=== PATIENT | female | born 1980 | race African-American/Black ===

== ENCOUNTER 2018-07-22 17:18 | Emergency (ER) | payer SELFPAY ==
[~2018-07-22] VITALS: Ht 160 cm; Wt 72.6 kg
[2018-07-22 17:32] VITALS: BP 129/89
[2018-07-22] MEDS ORDERED: IBUPROFEN600 MG ORAL (17:40)
[2018-07-22] MEDS ORDERED: AMOXICILLIN500 MG ORAL (17:40)
[2018-07-22 17:44] VITALS: BP 129/89
--- NOTE | 2018-07-22 18:37 | Emergency Room Report ---
History of Present Illness General Chief Complaint: Sore Throat Source: Patient Present Illness HPI The patient is a 38-year-old female presenting for sore throat and left ear pain for the past 3 days. Symptoms have been worsening and is now described as an 8 out of 10 dull ache primarily at the back of the throat. Worse with swallowing. She denies any known sick contacts but does have an at home. She denies any fever, chills, cough, shortness of breath, rash Allergies: Coded Allergies: No Known Allergies (Unverified , 07/22/18) Patient History Past Medical History: see triage record Pertinent Family History: none Last Menstrual Period: 07/20/18 Now: Yes : 4 Para: 2 Reviewed Nursing Documentation: PMH: Agreed; PSxH: Agreed Nursing Documentation-PMH Past Medical History: No Stated History Review of Systems All Other Systems: negative except mentioned in HPI Physical Exam Vital Signs Date Time Temp Pulse Resp B/P (MAP) Pulse Ox O2 Delivery O2 Flow Rate FiO2 07/22/18 17:24 98.5 77 18 129/89 100 Room Air 98.4 Sp02 EP Interpretation: reviewed, normal General Appearance: no apparent distress, alert, GCS 15, non-toxic Head: normocephalic, atraumatic Eyes: bilateral eye normal inspection, bilateral eye PERRL ENT: hearing grossly normal, no angioedema, normal voice, TMs + canals normal, uvula midline, tonsillar swelling, pharyngeal erythema Neck: full range of motion, supple/symm/no masses Respiratory: chest non-tender, lungs clear, normal breath sounds, speaking full sentences Cardiovascular #1: regular rate, rhythm, no edema Musculoskeletal: back normal, gait/station normal, normal range of motion, non- tender Neurologic: alert, oriented x3, responsive, motor strength/tone normal, sensory intact, speech normal Psychiatric: judgement/insight normal, memory normal, mood/affect normal, no suicidal/homicidal ideation Skin: normal color, no rash, warm/dry, well hydrated Lymphatic: no adenopathy Medical Decision Making PA Attestation Dr. Rivas is my supervising physician. Patient management was discussed with my supervising physician Diagnostic Impression: Primary Impression: Pharyngitis, acute Qualified Codes: J02.9 - Acute pharyngitis, unspecified ER Course The patient is a 38-year-old female presenting for sore throat and left ear pain for the past 3 days Differential diagnosis include but not limited to pharyngitis, sinusitis, AOM, bronchitis, PNA Physical exam: Vitals within normal limits. Afebrile. No apparent distress HEENT exam: There is bilateral tonsillar edema, erythema. Uvula midline. Moist mucous membranes. There is bilateral cervical lymphadenopathy. Lungs are clear to auscultation bilaterally Skin is warm and dry. No rash The patient will be discharged home with a prescription for amoxicillin and is given ER precautions. Patient will followup with primary care Last Vital Signs Date Time Temp Pulse Resp B/P (MAP) Pulse Ox O2 Delivery O2 Flow Rate FiO2 07/22/18 17:44 98.4 74 18 129/89 100 Room Air 98.4 Status: improved Disposition: HOME, SELF-CARE Condition: Improved Scripts Amoxicillin* (AMOXIL*) 500 Mg Capsule 500 MG ORAL Q12HR, #14 CAP Prov: YULISA HUBBARD.A. 07/22/18 Ibuprofen* (MOTRIN*) 600 Mg Tablet 600 MG ORAL Q8H PRN for For Pain, #30 TAB 0 Refills Prov: YULISA HUBBARD.A. 07/22/18 Referrals: NOT CHOSEN [facility]/,REFERRING (PCP) Patient Instructions: Pharyngitis Additional Instructions: I discussed my findings with the patient. All questions and concerns have been answered. Treatment and medication compliance have been addressed. I advised the patient that they need to follow up with PMD in 3-5 days. Return to ED if pain remains or worsens, cough worsens or remains, you notice blood in your sputum, you notice wheezing, you experience a fever, or if needed for any reason. Patient verbalized understanding of discharge instructions. YULISA HUBBARD Jul 22, 2018 18:37
== END 2018-07-22 18:05 | disposition home or self-care (01) ==
LOC: EMR 18:01
DX: J02.9 Acute pharyngitis, unspecified (principal); H92.02 Otalgia, left ear
CPT/HCPCS: 99283